=== PATIENT | female | born 1985 | race Caucasian/White ===

== ENCOUNTER 2018-02-23 19:27 | Inpatient (IN) | payer BC ==
--- NOTE | 2018-02-23 20:35 | HP ---
General Information - Reason for Visit SROM and contractions - General Information Maternal Age: 32 Grav: 1 Para: 0 SAB: 0 IEA: 0 Estimated Due Date: 03/05/18 Determined By: LMP Maternal Blood Type and Rh: A Negative - Results this Serology/RPR Result: Reactive Rubella Result: Non-Immune HBsAg Result: Negative HIV Result: Negative GBS Culture Result: Negative Past Medical History Delivery History: See Records Pertinent Past Medical History: Non-Contributory Pertinent Past Surgical History: None Pertinent Family History: See Records - HTN, thyroid disorder, ovarian CA, colon CA, high chol. - Antepartal Records Antepartal Records: Reviewed, Complicated by: - BMI 45 Review of Systems Constitutional: Uncomfortable CV Complaint: No Respiratory: Shortness of Breath: No Gastrointestinal: Normal Bowel Movement, Nausea, Vomiting Genitourinary: Leaking Fluid, No Dysuria, No Bleeding Musculoskeletal: Back Pain, Contractions Neurological: No Headache, No Visual Changes Movement: Normal Exam Allergies/Adverse Reactions: Allergies No Known Allergies Allergy (Verified 02/23/18 20:13) T:98.8, R:16, BP:137/72, O2:100% - Measurements Height: 5 ft 7 in Weight: 324 lb Body Mass Index (BMI): 50.7 Pre- Weight: 294 lb - Exam Breast: Breast Exam Deferred CVA: No CVA Tenderness Extremities: No Edema Heart: Normal Rhythm/Heart Sounds HEENT: No Significant Findings Lungs: Clear Bilaterally Rectal: Rectal Exam Deferred Reflexes: DTR 2+ Thyroid: No Thyromegaly - Abdominal Exam Abdomen Exam: Fundal Height Consistent with Dates - Ultrasound/Biophysical Profile Ultrasound Status: Not Done Targeted Exam Findings Estimated Weight: 8lbs Cervical Exam: 6cm Effacement: 100% Station: -1 Presenting Part: Vertex Membrane Status: Leaking Amniotic Fluid Evaluation: Gross Rupture Bleeding/Discharge: Bloody Show EFM Findings - External Monitor Findings Baseline Heart Rate: 145 External Monitor Findings: Accelerations Present, No Pattern of Variable or Late Decelerations, Variability Moderate, Baseline Stable Contractions: Irregular, Moderate, 45-90 Seconds Assessment/Plan - Assessment early labor, SROM - Plan Plan: Admit - Anticipate Vaginal Delivery - Date/Time of Admission Date of Admission: 02/23/18 Time of Admission: 19:58
[2018-02-23] MEDS ORDERED: Witch Hazel PAD* JAR TOPICAL PRN (23:17)
[2018-02-23] MEDS ORDERED: RHO D Immune Globulin (HUMAN)* 300 MCG = 1,500 I.U. INJ IM ONE (23:17)
[2018-02-23] MEDS ORDERED: Glycerin ADULT SUPP PR PRN (23:17)
[2018-02-23] MEDS ORDERED: Dibucaine 1% 28.35 GM TUBE PR PRN (23:17)
[2018-02-23] MEDS ORDERED: Measles, Mumps,Rubella VACC* 0.5 ML/VIAL SUBCUT ONE (23:17)
[2018-02-23] MEDS ORDERED: OXYTOCIN* 10 UNITS/ML 1 ML VIAL IM ONE (23:17)
[2018-02-23] MEDS ORDERED: Acetaminophen TAB* 325 MG PO PRN (23:17)
--- NOTE | 2018-02-23 23:23 | PROCNOTE ---
[facility] OB: Delivery Note - Delivery A Date of : 02/23/18 Time of : 22:37 Sex: Male Score 1 Minute: 9 Score 5 Minutes: 9 Gestational Age in Weeks and Days at Delivery: 38 Weeks and 4 Days Delivery Method: Spontaneous Vaginal Labor: Spontaneous Amniotic Fluid: Clear Estimated Blood Loss: 200 Anesthesia/Analgesia: Nitrous-Labor Delivered By: Carine Kirkpatrick - Nursery Level of Nursery: Regular/Bedside - Perineum Perineal Injury: 2nd Degree Perineal Repair: By Delivering Practioner - Events Delivery Events of Note: Pitocin Only After Delivery
[2018-02-23] MEDS ORDERED: Lidocaine 1%* 5 ML VIAL ONE (23:28)
[2018-02-23] MEDS ORDERED: OXYTOCIN* 10 UNITS/ML 1 ML VIAL ONE (23:28)
[2018-02-23] MEDS ORDERED: Ibuprofen TAB* 600 MG ONE (23:55)
[2018-02-23] MEDS: Ibuprofen TAB* 600 MG PO PRN (23:59)
[2018-02-24] MEDS: Ibuprofen TAB* 600 MG PO PRN ×2 (05:59→20:16)
[2018-02-24 06:43] LABS: Hematocrit 36 % (35-47); Hemoglobin 12.2 g/dl (12.0-16.0); Mean Corpuscular HGB Conc 34 g/dl (31-36); Mean Corpuscular Hemoglobin 30 pg (27-31); Mean Corpuscular Volume 88 fL (80-97); Mean Platelet Volume 9.7 um3 (7.4-10.4); Platelet Count 205 10^3/ul (150-450); Red Blood Count 4.07 10^6/ul (4.00-5.40); Red Cell Distribution Width 14 % (10.5-15); White Blood Count 19.4 10^3/ul (3.5-10.8)
[2018-02-24 08:06] LABS: ABS Basophils 0.1 10^3/ul (0-0.2); ABS Eosinophils 0 10^3/ul (0-0.6); ABS Lymphocytes 1.2 10^3/ul (1.0-4.8); ABS Monocytes 1.6 10^3/ul (0-0.8); ABS Neutrophils 16.5 10^3/ul (1.5-7.7); ABS Nucleated RBC 0 10^3/ul; Eosinophil % 0.1 % (0-6); Lymphocyte % 6.2 % (25-47); Nucleated Red Blood Cells % 0
[2018-02-24] MEDS: Docusate CAP* 100 MG PO SCH ×3 (08:30→20:16)
[2018-02-24] MEDS ORDERED: Simethicone TAB* 80 MG TAB.CHEW PO SCH (08:30)
[2018-02-24] MEDS ORDERED: Ferrous Gluconate TAB* 324 MG TAB PO SCH (09:00)
[2018-02-25 07:32] VITALS: BP 120/58
[2018-02-25] MEDS: Ibuprofen TAB* 600 MG PO PRN ×2 (08:33→14:53)
[2018-02-25] MEDS: Docusate CAP* 100 MG PO SCH ×2 (08:36→14:53)
== END 2018-02-25 15:40 | disposition home or self-care (01) | DRG 560 ==
LOC: MCHOBOUT 19:27 → MCHOB 19:58
PROVIDERS: ADMIT Midwife; ATTEND Midwife
PROC: 10E0XZZ Delivery of Products of Conception, External Approach (ICD-10-PCS; principal; 2018-02-23)
PROC: 4A1HXCZ Monitoring of Products of Conception, Cardiac Rate, External Approach (ICD-10-PCS; 2018-02-23)
PROC: 0KQM0ZZ Repair Perineum Muscle, Open Approach (ICD-10-PCS; 2018-02-23)
DX: O70.1 Second degree perineal laceration during delivery (principal); Z37.0 Single live birth; Z3A.38 38 weeks gestation of pregnancy; Z67.11 Type A blood, Rh negative; Z82.49 Family history of ischemic heart disease and other diseases of the circulatory system; Z83.49 Family history of other endocrine, nutritional and metabolic diseases; Z80.0 Family history of malignant neoplasm of digestive organs; Z80.41 Family history of malignant neoplasm of ovary
CPT/HCPCS: 36415; 85025; 85461; 86900; 86901; 90707; A9270-GY; J2590; J2790